=== PATIENT | female | born 1975 | race Caucasian/White ===

== ENCOUNTER 2022-12-05 23:13 | Emergency (ER) | payer OTHER, SELFPAY ==
[2022-12-05 23:15] VITALS: BP 138/76; PULSE 84; RESP 18; TEMP 36.6; O2SAT 99; BMI 28.1
== END 2022-12-06 00:44 | disposition left against medical advice (07) ==
PROVIDERS: Emergency Provider Emergency Medicine; PCP Pediatrics
DX: J02.9 Acute pharyngitis, unspecified (principal); R06.02 Shortness of breath
CPT/HCPCS: 99281